=== PATIENT | female | born 1995 | race Caucasian/White ===

== ENCOUNTER 2023-08-27 21:24 | Emergency (ER) | payer MEDICAID ==
[~2023-08-27] VITALS: Ht 157.5 cm; Wt 47.6 kg
[2023-08-27 21:32] VITALS: BP_SYST 132; PULSE 79; RESP 16; TEMP 97.9; O2SAT 99
[2023-08-27] MEDS ORDERED: DOXY100C5 PO (21:36)
[2023-08-27] MEDS ORDERED: METH-776 PO (21:36)
[2023-08-27 21:50] VITALS: BP_SYST 132; PULSE 79; RESP 16; TEMP 97.9; O2SAT 99
== END 2023-08-27 21:50 | disposition home or self-care (01) ==
LOC: SED 21:24
DX: S80.861A Insect bite (nonvenomous), right lower leg, initial encounter (principal); W57.XXXA Bitten or stung by nonvenomous insect and other nonvenomous arthropods, initial encounter; Y93.01 Activity, walking, marching and hiking; Y92.89 Other specified places as the place of occurrence of the external cause; Y99.8 Other external cause status
CPT/HCPCS: 99283